=== PATIENT | female | born 1995 | race Caucasian/White ===

== ENCOUNTER 2023-02-28 10:35 | Emergency (ER) | payer OTHER, SELFPAY ==
--- NOTE | ~2023-02-28 | XR_ITS ---
EXAMINATION: XR CHEST CLINICAL INFORMATION: Shortness of breath and cough. COMPARISON: None available. TECHNIQUE: Frontal view of the chest was obtained. FINDINGS: No significant abnormality is noted involving the heart, lungs, mediastinum, bony thorax or soft tissues. XR/XR chest 1V IMPRESSION: Unremarkable examination.
[2023-02-28 10:54] VITALS: BP 128/86; PULSE 84; RESP 18; TEMP 36.6; O2SAT 100; BMI 22.8
--- NOTE | 2023-02-28 11:00 | ECG_ITS ---
Test Reason : CP Blood Pressure : / mmHG Vent. Rate : 079 BPM Atrial Rate : 079 BPM P-R Int : 110 ms QRS Dur : 082 ms QT Int : 370 ms P-R-T Axes : 078 059 057 degrees QTc Int : 424 ms Sinus rhythm with short ID Possible Left atrial enlargement Borderline ECG No previous ECGs available Referred By: Cordelia Stevens Electronically Signed By:SADIA COLON MD
--- NOTE | 2023-02-28 11:01 | ED_ITS ---
HPI - General Adult General Chief complaint: General Medical <CHIDI Glover - Last Filed: 02/28/23 11:03> Stated complaint: SOB/Chest tightness/Fatigue for months <CHIDI Glover - Last Filed: 02/28/23 11:03> Time Seen by Provider: 02/28/23 21:40 <CHIDI Glover - Last Filed: 02/28/23 11:03> Source: patient <Dorita Lo MD - Last Filed: 02/28/23 21:49> Mode of arrival: ambulatory <Dorita Lo MD - Last Filed: 02/28/23 21:49> Limitations: no limitations <Dorita Lo MD - Last Filed: 02/28/23 21:49> History of Present Illness HPI narrative: Patient comes emergency room complaining fatigue, generalized weakness, chest tightness for approximately 2 months. Patient states that she has been seen at urgent care and other hospitals, labs have been normal. <Dorita Lo MD - Last Filed: 02/28/23 21:49> Related Data Allergies/adverse reactions: Allergies Allergy/AdvReac Type Severity Reaction Status Date / Time No Known Allergies Allergy Verified 02/28/23 10:53 <CHIDI Glover - Last Filed: 02/28/23 11:03> Review of Systems Review of Systems: Constitutional : No Weight loss, No Fever, No Chills, No Night Sweats, complaining of chronic fatigue ENT/Mouth : No Hearing loss, No Ear Pain, No Nasal Congestion, No Sinus Pain, No Hoarseness, No sore throat, No Rhinorrhea, No Swallowing Difficulty Eyes: No Eye Pain, No Swelling, No Redness, No Foreign Body, No Discharge, No Vision Changes Cardiovascular : No Chest Pain, intermittent chest tightness, No SOB, No Dyspnea on Exertion, No Orthopnea, No Edema, No Palpitations Respiratory : No Cough, No Sputum, No Wheezing, No Smoke Exposure, No Dyspnea Gastrointestinal : No Nausea, No Vomiting, No Diarrhea, No Constipation, No abdominal Pain, No Hematochezia, No Melena Genitourinary : no irregular bleeding, No Dysuria, No Urinary Frequency, No Hematuria, No Urinary Incontinence, No Urgency, No Flank Pain, No Urinary Flow Changes, No Hesitancy Musculoskeletal : No joint pain, No Myalgias, No Joint Swelling Skin : No Skin Lesions, No rash Neuro : No Weakness, No Numbness, No Paresthesias, No Loss of Consciousness, No Dizziness, No Headache Psych : No Anxiety/Panic, No Depression, No SI/HI/AH/VH, No Social Issues, Heme/Lymph: No Bruising, No Bleeding,No Lymphadenopathy Endocrine : No Polyuria, No Polydipsia, No Temperature Intolerance <Dorita Lo MD - Last Filed: 02/28/23 21:49> Physical Exam ED Vital Signs: Vital Signs - 24 hr 02/28/23 10:54 02/28/23 21:19 Temperature 98 F 97.3 F Pulse Rate 84 69 Respiratory Rate 18 17 Blood Pressure 128/86 127/83 Pulse Oximetry 100 96 Oxygen Delivery Method Room Air BMI result Body Mass Index 22.8 <CHIDI Glover - Last Filed: 02/28/23 11:03> Vital Signs - 24 hr 02/28/23 10:54 02/28/23 21:19 Temperature 98 F 97.3 F Pulse Rate 84 69 Respiratory Rate 18 17 Blood Pressure 128/86 127/83 Pulse Oximetry 100 96 Oxygen Delivery Method Room Air BMI result Body Mass Index 22.8 <Dorita Lo MD - Last Filed: 02/28/23 21:49> Const Other: Appearance: Alert. Oriented X3. No acute distress. Eyes: Pupils equal, round and reactive to light. ENT: Pharynx normal. Neck: Normal inspection. Neck supple. No lymph nodes noted. No crepitus CVS: Normal heart rate and rhythm. Pulses normal. Normal S1 and S2 Respiratory: No respiratory distress. Breath sounds normal. No Wheezing. No rales Abdomen: Soft and nontender. No rigidity. No distention. Skin: Skin warm and dry. Normal skin color. Normal skin turgor. Extremities: No lower extremity edema. No Lacerations. No Rash Neuro: Oriented X 3. No motor deficit. No sensory deficit. Moving all extremities. No slurred speech. CN 2 through 12 grossly intact Psych: calm, cooperative, normal affect <Dorita Lo MD - Last Filed: 02/28/23 21:49> Course Course Course Narrative: RME - 28 yo healthy female presenting with 4-6 weeks of SOB, chest tightness, lightheadedness, fatigue, dry mouth and generalized weakness. She states she went to Urgent Care and [facility] and had normal lab work. VSS in triage. Appears well. Plan: EKG, basic labs, TSH, mono, Upreg <CHIDI Glover - Last Filed: 02/28/23 11:03> Medical Decision Making Medical Decision Making [facility] Narrative: -I discussed with the patient her labs, EKG, x-rays, all normal. -patient instructed to follow-up with her primary care physician <Dorita Lo MD - Last Filed: 02/28/23 21:49> Differential Diagnosis Differential Diagnoses: The differential diagnosis associated with the presentation includes (Chronic fatigue syndrome, depression, anxiety) <Dorita Lo MD - Last Filed: 02/28/23 21:49> Lab Data [facility] Lab Attestation statement: I reviewed the patient's lab results. <Dorita Lo MD - Last Filed: 02/28/23 21:49> Result Diagrams: 02/28/23 11:14 02/28/23 11:14 <CHIDI Glover - Last Filed: 02/28/23 11:03> Labs: Lab Results 02/28/23 02/28/23 02/28/23 Range/Units 11:11 11:11 11:14 WBC 6.8 (4.8-10.8) X10*3/uL RBC 4.48 (4.20-5.50) X10*6/uL Hgb 13.9 (12.0-16.0) g/dl Hct 41.3 (37.0-47.0) % MCV 92.2 (80.0-98.0) fL MCH 31.0 (27.0-33.0) pg MCHC 33.7 (31.0-35.0) g/dl RDW 12.2 (11.0-16.0) % Plt Count 283 (160-400) X10*3/uL MPV 10.6 (9.4-12.3) fL Immature Gran % (Auto) 0.3 (0.0-0.4) % Neut % (Auto) 73.3 H (45-73) % Lymph % (Auto) 19.2 L (20-40) % [place] % (Auto) 6.9 (2-11) % Eos % (Auto) 0.0 (0-4) % Baso % (Auto) 0.3 (0-2) % Lymph # (Auto) 1.3 (1.2-4.9) X10*3/uL [place] # (Auto) 0.5 (0.1-1.2) X10*3/uL Eos # (Auto) 0.0 (0.0-0.4) X10*3/uL Baso # (Auto) 0.0 (0.0-0.2) X10*3/uL Abs Immat Gran (auto) 0.02 (0.00-0.03) X10*3/uL Absolute Neuts (auto) 5.0 (2.0-8.3) x10*3/uL Absolute Nucleated RBC 0.000 (0.0-0.012) X10*3/uL Nucleated RBC % (auto) 0.0 (0.0-0.2) /100WBC Sodium (135-145) mmol/L Potassium (3.3-5.1) mmol/L Chloride (96-108) mmol/L Carbon Dioxide (22-29) mmol/L Anion Gap (12-20) BUN (9-16) mg/dL Creatinine (0.5-1.4) mg/dL Estim Creat Clear Calc Estimated GFR Random Glucose (60-115) mg/dL Calcium (8.4-10.2) mg/dL Magnesium (1.6-2.6) mg/dL Total Bilirubin (0.0-1.0) mg/dL Direct Bilirubin (0.0-0.5) mg/dL AST (5-31) U/L ALT (0-31) U/L Alkaline Phosphatase (39-117) U/L Total Protein (6.5-8.0) g/dL Albumin (3.5-5.0) g/dL TSH (0.32-4.0) uIU/mL Urine Color Yellow Urine Appearance Clear Urine pH 7.0 (5.0-9.0) Ur Specific [place] <= 1.005 (1.005-1.025) Urine Protein Negative (Neg-Trace) mg/dL Urine Glucose (UA) Negative (Negative) mg/dL Urine Ketones Negative (Negative) mg/dL Urine Blood Negative (Negative) Urine Nitrite Negative (Negative) Ur Leukocyte Esterase Negative (Negative) Urine Test NEGATIVE (NEGATIVE) Monoscreen (Negative) 02/28/23 02/28/23 02/28/23 Range/Units 11:14 11:14 11:14 WBC (4.8-10.8) X10*3/uL RBC (4.20-5.50) X10*6/uL Hgb (12.0-16.0) g/dl Hct (37.0-47.0) % MCV (80.0-98.0) fL MCH (27.0-33.0) pg MCHC (31.0-35.0) g/dl RDW (11.0-16.0) % Plt Count (160-400) X10*3/uL MPV (9.4-12.3) fL Immature Gran % (Auto) (0.0-0.4) % Neut % (Auto) (45-73) % Lymph % (Auto) (20-40) % [place] % (Auto) (2-11) % Eos % (Auto) (0-4) % Baso % (Auto) (0-2) % Lymph # (Auto) (1.2-4.9) X10*3/uL [place] # (Auto) (0.1-1.2) X10*3/uL Eos # (Auto) (0.0-0.4) X10*3/uL Baso # (Auto) (0.0-0.2) X10*3/uL Abs Immat Gran (auto) (0.00-0.03) X10*3/uL Absolute Neuts (auto) (2.0-8.3) x10*3/uL Absolute Nucleated RBC (0.0-0.012) X10*3/uL Nucleated RBC % (auto) (0.0-0.2) /100WBC Sodium 140 (135-145) mmol/L Potassium 3.8 (3.3-5.1) mmol/L Chloride 106 (96-108) mmol/L Carbon Dioxide 25 (22-29) mmol/L Anion Gap 13 (12-20) BUN 8 L (9-16) mg/dL Creatinine 0.71 (0.5-1.4) mg/dL Estim Creat Clear Calc 92.4 Estimated GFR > 60 Random Glucose 95 (60-115) mg/dL Calcium 9.8 (8.4-10.2) mg/dL Magnesium 2.2 (1.6-2.6) mg/dL Total Bilirubin 1.2 H (0.0-1.0) mg/dL Direct Bilirubin 0.3 (0.0-0.5) mg/dL AST 13 (5-31) U/L ALT 14 (0-31) U/L Alkaline Phosphatase 51 (39-117) U/L Total Protein 7.4 (6.5-8.0) g/dL Albumin 4.8 (3.5-5.0) g/dL TSH 2.27 (0.32-4.0) uIU/mL Urine Color Urine Appearance Urine pH (5.0-9.0) Ur Specific [place] (1.005-1.025) Urine Protein (Neg-Trace) mg/dL Urine Glucose (UA) (Negative) mg/dL Urine Ketones (Negative) mg/dL Urine Blood (Negative) Urine Nitrite (Negative) Ur Leukocyte Esterase (Negative) Urine Test (NEGATIVE) Monoscreen Negative (Negative) <CHIDI Glover - Last Filed: 02/28/23 11:03> Lab Results 02/28/23 02/28/23 02/28/23 Range/Units 11:11 11:11 11:14 WBC 6.8 (4.8-10.8) X10*3/uL RBC 4.48 (4.20-5.50) X10*6/uL Hgb 13.9 (12.0-16.0) g/dl Hct 41.3 (37.0-47.0) % MCV 92.2 (80.0-98.0) fL MCH 31.0 (27.0-33.0) pg MCHC 33.7 (31.0-35.0) g/dl RDW 12.2 (11.0-16.0) % Plt Count 283 (160-400) X10*3/uL MPV 10.6 (9.4-12.3) fL Immature Gran % (Auto) 0.3 (0.0-0.4) % Neut % (Auto) 73.3 H (45-73) % Lymph % (Auto) 19.2 L (20-40) % [place] % (Auto) 6.9 (2-11) % Eos % (Auto) 0.0 (0-4) % Baso % (Auto) 0.3 (0-2) % Lymph # (Auto) 1.3 (1.2-4.9) X10*3/uL [place] # (Auto) 0.5 (0.1-1.2) X10*3/uL Eos # (Auto) 0.0 (0.0-0.4) X10*3/uL Baso # (Auto) 0.0 (0.0-0.2) X10*3/uL Abs Immat Gran (auto) 0.02 (0.00-0.03) X10*3/uL Absolute Neuts (auto) 5.0 (2.0-8.3) x10*3/uL Absolute Nucleated RBC 0.000 (0.0-0.012) X10*3/uL Nucleated RBC % (auto) 0.0 (0.0-0.2) /100WBC Sodium (135-145) mmol/L Potassium (3.3-5.1) mmol/L Chloride (96-108) mmol/L Carbon Dioxide (22-29) mmol/L Anion Gap (12-20) BUN (9-16) mg/dL Creatinine (0.5-1.4) mg/dL Estim Creat Clear Calc Estimated GFR Random Glucose (60-115) mg/dL Calcium (8.4-10.2) mg/dL Magnesium (1.6-2.6) mg/dL Total Bilirubin (0.0-1.0) mg/dL Direct Bilirubin (0.0-0.5) mg/dL AST (5-31) U/L ALT (0-31) U/L Alkaline Phosphatase (39-117) U/L Total Protein (6.5-8.0) g/dL Albumin (3.5-5.0) g/dL TSH (0.32-4.0) uIU/mL Urine Color Yellow Urine Appearance Clear Urine pH 7.0 (5.0-9.0) Ur Specific [place] <= 1.005 (1.005-1.025) Urine Protein Negative (Neg-Trace) mg/dL Urine Glucose (UA) Negative (Negative) mg/dL Urine Ketones Negative (Negative) mg/dL Urine Blood Negative (Negative) Urine Nitrite Negative (Negative) Ur Leukocyte Esterase Negative (Negative) Urine Test NEGATIVE (NEGATIVE) Monoscreen (Negative) 02/28/23 02/28/23 02/28/23 Range/Units 11:14 11:14 11:14 WBC (4.8-10.8) X10*3/uL RBC (4.20-5.50) X10*6/uL Hgb (12.0-16.0) g/dl Hct (37.0-47.0) % MCV (80.0-98.0) fL MCH (27.0-33.0) pg MCHC (31.0-35.0) g/dl RDW (11.0-16.0) % Plt Count (160-400) X10*3/uL MPV (9.4-12.3) fL Immature Gran % (Auto) (0.0-0.4) % Neut % (Auto) (45-73) % Lymph % (Auto) (20-40) % [place] % (Auto) (2-11) % Eos % (Auto) (0-4) % Baso % (Auto) (0-2) % Lymph # (Auto) (1.2-4.9) X10*3/uL [place] # (Auto) (0.1-1.2) X10*3/uL Eos # (Auto) (0.0-0.4) X10*3/uL Baso # (Auto) (0.0-0.2) X10*3/uL Abs Immat Gran (auto) (0.00-0.03) X10*3/uL Absolute Neuts (auto) (2.0-8.3) x10*3/uL Absolute Nucleated RBC (0.0-0.012) X10*3/uL Nucleated RBC % (auto) (0.0-0.2) /100WBC Sodium 140 (135-145) mmol/L Potassium 3.8 (3.3-5.1) mmol/L Chloride 106 (96-108) mmol/L Carbon Dioxide 25 (22-29) mmol/L Anion Gap 13 (12-20) BUN 8 L (9-16) mg/dL Creatinine 0.71 (0.5-1.4) mg/dL Estim Creat Clear Calc 92.4 Estimated GFR > 60 Random Glucose 95 (60-115) mg/dL Calcium 9.8 (8.4-10.2) mg/dL Magnesium 2.2 (1.6-2.6) mg/dL Total Bilirubin 1.2 H (0.0-1.0) mg/dL Direct Bilirubin 0.3 (0.0-0.5) mg/dL AST 13 (5-31) U/L ALT 14 (0-31) U/L Alkaline Phosphatase 51 (39-117) U/L Total Protein 7.4 (6.5-8.0) g/dL Albumin 4.8 (3.5-5.0) g/dL TSH 2.27 (0.32-4.0) uIU/mL Urine Color Urine Appearance Urine pH (5.0-9.0) Ur Specific [place] (1.005-1.025) Urine Protein (Neg-Trace) mg/dL Urine Glucose (UA) (Negative) mg/dL Urine Ketones (Negative) mg/dL Urine Blood (Negative) Urine Nitrite (Negative) Ur Leukocyte Esterase (Negative) Urine Test (NEGATIVE) Monoscreen Negative (Negative) <Dorita Lo MD - Last Filed: 02/28/23 21:49> Independent Interpretation I performed an independent interpretation of an: Plain X-Ray (My interpretation of x-rays, no acute findings) <Dorita Lo MD - Last Filed: 02/28/23 21:49> Radiology Impression Discussion of test interpretation with radiology: I have reviewed the radiologist's reading. <Dorita Lo MD - Last Filed: 02/28/23 21:49> Radiologist Impression: FINDINGS: No significant abnormality is noted involving the heart, lungs, mediastinum, bony thorax or soft tissues. XR/XR chest 1V IMPRESSION: Unremarkable examination. ? <Dorita Lo MD - Last Filed: 02/28/23 21:49> Discharge Plan Discharge Clinical Impression: Chronic fatigue <CHIDI Glover - Last Filed: 02/28/23 11:03> Patient Disposition: Home, Self-Care <CHIDI Glover - Last Filed: 02/28/23 11:03> Instructions: Fatigue (ED) <CHIDI Glover - Last Filed: 02/28/23 11:03> Additional Instructions: Please follow-up with your primary care physician tomorrow. If you have any worsening or new symptoms, please return to the emergency room or call 911 <CHIDI Glover - Last Filed: 02/28/23 11:03>
[2023-02-28 11:23] LABS: MANUAL DIFF FLAG NO
[2023-02-28 11:24] LABS: Basophils Percent Auto 0.3 % (0-2); Hematocrit 41.3 % (37.0-47.0); Hemoglobin 13.9 g/dl (12.0-16.0); Imm Gran Abs Auto 0.02 X10*3/uL (0.00-0.03); Imm Gran Pct Auto 0.3 % (0.0-0.4); Lymphocytes Absolute Auto 1.3 X10*3/uL (1.2-4.9); Lymphocytes Percent Auto 19.2 % (20-40); Mean Corpuscular HGB Conc 33.7 g/dl (31.0-35.0); Mean Corpuscular Volume 92.2 fL (80.0-98.0); Mean Platelet Volume 10.6 fL (9.4-12.3); Monocytes Absolute Auto 0.5 X10*3/uL (0.1-1.2); Monocytes Percent Auto 6.9 % (2-11); Neutrophils Percent Auto 73.3 % (45-73); Platelet Count 283 X10*3/uL (160-400); Red Blood Count 4.48 X10*6/uL (4.20-5.50); Red Cell Distribution Width 12.2 % (11.0-16.0); White Blood Count 6.8 X10*3/uL (4.8-10.8)
[2023-02-28 11:25] LABS: Appearance Urine Clear; Color Urine Yellow; Glucose Urine UA Negative (Negative); Leukocyte Esterase Urine Negative (Negative); Nitrite Urine Negative (Negative); Specific Gravity - Urine <= 1.005 (1.005-1.025); Urine Blood Negative (Negative); Urine Ketones Negative (Negative); Urine Protein Negative (Neg-Trace)
[2023-02-28 11:28] LABS: UPreg QC Valid YES; Urine Pregnancy NEGATIVE (NEGATIVE)
[2023-02-28 11:40] LABS: Alanine Aminotransferase 14 U/L (0-31); Albumin Level 4.8 g/dL (3.5-5.0); Alkaline Phosphatase 51 U/L (39-117); Anion Gap 13 (12-20); Aspartate Amino Transferase 13 U/L (5-31); Bilirubin Direct 0.3 mg/dL (0.0-0.5); Bilirubin Total 1.2 mg/dL (0.0-1.0); Blood Urea Nitrogen 8 mg/dL (9-16); Calcium 9.8 mg/dL (8.4-10.2); Carbon Dioxide 25 mmol/L (22-29); Chloride 106 mmol/L (96-108); Creatinine Clr Calc Pharmacy 92.4; Estimated Glomerular Filt Rate > 60; Glucose Random 95 mg/dL (60-115); Magnesium 2.2 mg/dL (1.6-2.6); Monotest Negative (Negative); Potassium 3.8 mmol/L (3.3-5.1); Sodium 140 mmol/L (135-145); Total Protein 7.4 g/dL (6.5-8.0)
[2023-02-28 12:01] LABS: TSH reflex Free T4 2.27 uIU/mL (0.32-4.0)
[2023-02-28 21:19] VITALS: BP 127/83; PULSE 69; RESP 17; TEMP 36.3; O2SAT 96
--- OUTSIDE RECORDS SUMMARY | 2023-02-28 21:53 | XMS_ITS | Continuity of Care Document ---
Author Name Unknown Organization [facility] Address [address] [place] [address]- Care Team Providers Care Precision Assembler Name Role Phone Not on Staff, PCP Primary Care Physician Unavail able Encounter [facility] Date(s): 02/07/23 - 02/07/[address] [address]- Discharge Disposition: A-D/C Home Attending Physician: Jose Santiago MD Admitting Physician: Jose Santiago MD Referring Physician: Not on Staff, Referring MD Allergies, Adverse Reactions, Alerts No Known Allergies Medications meclizine 25 mg oral tablet 1 tablet = 25 mg, By Mouth, 3 times a day, PRN for dizziness, for 10 days, # 30 tablet, 0 Refills, Acute 02/17/23 22:11:00 EDT, 02/07/23 22:11:00 EDT, Tablet, [id number], Partial fill upon patient request if the prescription is for a... Start Date: 02/07/23 Stop Date: 02/17/23 Status: Ordered ondansetron 4 mg oral tablet, disintegrating 1 tablet = 4 mg, By Mouth, Every 8 hours, PRN Nausea & Vomiting, for 7 days, # 20 tablet, 0 Refills, Acute 02/14/23 22:11:00 EDT, 02/07/23 22:11:00 EDT, Tablet, [facility] #[id number], Partial fill upon patient request if the prescription is for... Start Date: 02/07/23 Stop Date: 02/14/23 Status: Ordered Vital Signs Most recent to oldest [Reference Range]: 1 2 Height 158 cm (02/07/23 5:08 PM) Weight 57.7 kg (02/07/23 5:08 PM) Oxygen Saturation [94-100 %] 100 % (02/07/23 10:38 PM) 99 % (02/07/23 5:08 PM) Pulse Rate [55-90 bpm] 67 bpm (02/07/23 10:38 PM) 75 bpm (02/07/23 5:08 PM) Blood Pressure [90-138/55-84 mm Hg] 114/ 70mm Hg (02/07/23 10:38 PM) 116/82mm Hg (02/07/23 5:08 PM) Respiratory Rate [16-30 br/min] 16 br/mi n (02/07/23 10:38 PM) 16 br/min (02/07/23 5:08 PM) Temperature [96.8-100.4 DegF] 97.5 DegF (02/07/23:38 PM) 97.6 DegF (02/07/23:08 PM) Mode of Delivery (Oxygen) Room air (02/07/23 10:38 PM) Room air (02/07/23 5:08 PM) Blood pressure sites Arm, left (02/07/23 10:38 PM) Arm, left (02/07/23:08 PM) Temperature Route Oral (02/07/23 10:38 PM) Temporal (02/07/23 5:08 PM) Dry Weight 57.7 kg (02/07/23 5:08 PM) Dry Weight Obtained Via Standing scale (02/07/23 5:08 PM) Social History Social History Type Response Smoking Status Never (less than 100 in lifetime) entered on: 02/07/23 Sex Note * Jack ROBBINS, Jose Joyner: PERFORM Event Display: Patient Education Leaflets Authored Date: [id number] Vertigo (Unknown Cause) ?? [id number] Vertigo (Unknown Cause) Vertigo is a false feeling of motion. You aren't moving, but it feels as if you are. This feeling can be caused by problems in the inner ear. In addition to helping with hearing, the inner ear is part of the balance center of your body. When something affects the balance center, you can have vertigo. Often it feels as if you or the room are spinning. A vertigo attack may cause sudden nausea, vomiting, and heavy sweating. Severe vertigo causes a loss of balance and can make you fall. During vertigo, small head movements and changes in body position will often make the symptoms worse. You may also have ringing in the ears (tinnitus). An episode of vertigo may last seconds, minutes, or hours. Once you are over the first episode, it may never come back. But symptoms may return off and on. Often your provider will have you do certain head and body movements in the office to treat your vertigo. The cause of your vertigo is not yet known.??Possible causes of vertigo include: ??? Inner ear inflammation ??? Disease of the nerves to the inner ear ??? Movement of calcium particles in the inner ear ??? Poor blood flow to the balance centers of the brain ??? Migraine headaches??? In older adults, the use of more than one medicine along with some health conditions Home care ??? If symptoms are severe, rest quietly in bed. Change positions very slowly. There is often one position that will feel best. This may be lying on one side or lying on your back with yourhead slightly raised on pillows. Until you have no symptoms, you are at a higher risk of falling. Let someone help you when you get up. Get rid of home hazards such as loose electrical cords, clutter, toys on the floor, and throw rugs. Don???t walk in unfamiliar areas that are not lighted. Use night-lights in bathrooms and sabra. ??? Don't drive??a car??or work with dangerous machinery until symptoms have been gone for at least 1 week. ??? Take medicine as prescribed to ease your symptoms. Unless another medicine was prescribed for symptoms of nausea, vomiting, and dizziness, you may use [id number] motion sickness pills.??If you have any questions about an [id number] medicineor its side effects, talk with your healthcare provider or pharmacist before taking it. Let your pharmacist know all of the other medicines you are taking and if you have any allergies to medicines. ?? Follow-up care Follow up with your healthcare provider as directed. If you are referred to a specialist or for testing, make the appointment right away. ?? When to get medical advice Call your healthcare provider if you have any of the following: ??? Fever of 100.4??F (38??C) or higher, or as directed by your healthcare provider ??? Vertigo gets worse or is not controlled by??prescribed??medicine? Repeated vomiting that doesn't stop after taking prescribed??medicine? Severe headache ??? Confusion ??? Trouble with vision ?? Call 911 Call 911 if any of these occur: ??? Feeling faint (loss of consciousness) ??? Seizure ??? Weakness of an arm, leg, or one side of the face ??? Trouble with speech ?? Last Reviewed Date: 2022 ?? 5625-1273 [employer]. All rights reserved. This information is not intended as a substitute for professional medical care. Always follow your healthcare professional's instructions. ?? Patient Care team information Care Team Personnel Name: Not on Staff, PCP Position: [facility] Physician (General Medicine) Member Role: PCP Name: Jack ROBBINS, Jose Joyner Position: [facility] ED Medicine MD Member Role: Admitting Physician Address: Address: [address] [place] [address] [place] [address]- Name: Apryl Mariano RN Position: [facility] ED RN W/OE and Tasks Member Role: Patient Care Provider Care Team Related Persons Name: WILLIAMS GARRISON Address: home [address] [place] [address] Name: SEGUNDO RUELAS Address: home [address] [place] [address]
--- NOTE | 2023-02-28 22:35 | PC.NURSE ---
pt ambulatory at discharge. pt calm and cooperative. pt partner at bedside. pt provided with discharge packet. pt verbalized understanding of discharge plan
== END 2023-02-28 22:36 | disposition home or self-care (01) ==
PROVIDERS: Physician Assistant; Emergency Provider Emergency Medicine; PCP Internal Medicine
DX: R53.83 Other fatigue (principal); R07.89 Other chest pain; R06.02 Shortness of breath; Z79.899 Other long term (current) drug therapy
CPT/HCPCS: 36415; 71045; 80048; 80076; 81003; 81025; 83735; 84443; 85025; 86308; 93005; 99283; 99284

== ENCOUNTER 2023-05-10 09:47 | Outpatient (AMB) | payer OTHER, SELFPAY ==
[2023-05-10 09:59] VITALS: BP 110/70; PULSE 97; O2SAT 98; BMI 22.1
--- NOTE | 2023-05-10 09:59 | MHC.PC.OV ---
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 Patient was in the emergency room for chronic fatigue review of the blood work was normal. feeling dizzy pass out , nausea, since january anxious , depression ? cause consfused, warm bilateral arm numbness, pressure ear, , occ waking up sob, , state chest pain- states [facility] MRI brain which is negative watery stools, , no dysuria LMP thid time regular REPLACED BY [facility] Medical History (Updated 05/10/23 @ 10:58 by Erasto Cote MD) Tourette syndrome Family History (Updated 05/10/23 @ 10:34 by Erasto Cote MD) Maternal Uncle Bone cancer Lung cancer Other Diabetes FH: mental illness Hypertension Substance abuse Social History (Updated 05/10/23 @ 10:36 by Erasto Cote MD) Housing: House Alcohol intake: current Alcohol intake frequency: holidays/special occasions only Patient Tobacco Use Status: Never used Tobacco e-Cigarette/Vaping Use: Never Used Second Hand Smoke Exposure: No service: No Current occupational status: employed Current occupational exposures/hazards: Yes Cognitive needs: No Hearing needs: No Vision needs: No Questionnaire PHQ-9 Over the last 2 weeks, how often have you been bothered by any of the following problems? 1. Little interest or pleasure in doing things: nearly every day 2. Feeling down, depressed, or hopeless: nearly every day 3. Trouble falling or staying asleep, or sleeping too much: several days 4. Feeling tired or having little energy: several days 5. Poor appetite or overeating: not at all 6. Feeling bad about yourself - or that you are a failure or have let yourself or your family down: several days 7. Trouble concentrating on things, such as reading the newspaper or watching television: nearly every day 8. Moving or speaking so slowly that other people could have noticed. Or the opposite - being so fidgety or restless that you have been moving around a lot more than usual: not at all 9. Thoughts that you would be better off or of hurting yourself in some way: not at all Total score: 12 Source: Developed by Drs. Miguel Melara, Annika Ibanez, Sam Perez and colleagues, with an educational harrison from [employer]. Thrive Questionnaire Date Thrive assessed: 05/10/23 I am a: Patient What is your living situation today?: I have a steady place to live Within the past 12 months, did the food you bought not last and you didn't have the money to get more?: Never true Within the past 12 months, did you worry whether your food would run out before you got money to buy more?: Never true Do you have trouble paying for medicines?: No Do you have trouble getting transportation to medical appointments?: No Do you have trouble paying your heating and electricity bill?: No Do you have trouble taking care of your child, family member or friend?: No Do you have trouble with day-to-day activities such as bathing, preparing meals, shopping, managing finances, etc.?: No Are you currently unemployed and looking for a job?: No Are you interested in more education?: No Please select the resources that you would like help with: None Currently or been in a relationship where the following occur: no concerns reported AUDIT C Alcohol Use Questionnaire (AUDIT-C) 1. How often do you have a drink containing alcohol?: Monthly or less Total Score: 1 KEN-7 AMB Questionnaire KEN-7 Date KEN - 7 assessed: 05/10/23 Feeling nervous, anxious, or on edge: 3 = Nearly every day Not being able to stop or control worryin = Nearly every day Worrying too much about different things: 3 = Nearly every day Trouble relaxin = Nearly every day Being so restless that it is hard to sit still: 1 = Several days Becoming easily annoyed or irritable: 2 = More than half the days Feeling afraid as if something awful might happen: 3 = Nearly every day Total KEN-7 score (0-4 normal; 5-9 mild; 10-14 moderate; 15-21 severe): 18 Source: Developed by Drs. Miguel Melara, Annika Ibanez, Sam Perez and colleagues, with an educational harrison from [employer]. Review of Systems Const Denies poor appetite and Denies weakness Eyes Denies no additional complaints ENT Reports Normal hearing present, Denies dizziness, Denies nasal congestion, Denies tinnitus and Denies sore throat Card Denies chest pain, Denies syncope, Denies rapid heart rate and Denies dyspnea Resp Denies cough and Denies dyspnea GI Denies change in stool character, Reports constipation, Denies diarrhea, Denies nausea and Denies vomiting Denies urinary frequency, Denies difficulty voiding and Denies dysuria Neuro Reports Normal hearing present, Denies confusion, Denies dizziness, Denies syncope and Denies weakness Psych Denies confusion Physical exam (Primary Care) Vital Signs: Last Vital Signs Pulse 97 05/10/23 09:59 BP 110/70 05/10/23 09:59 Pulse Ox 98 05/10/23 09:59 Oxygen Delivery Method Room Air 05/10/23 09:59 Care Plan Goal for BP management: 1 cm mass 6 oclock right breast BMI result Body Mass Index 22.1 Tobacco/Smoking Status: Tobacco use Status Tobacco use date assessed 05/10/23 05/10/23 10:06 Patient Tobacco Use Status Never used Tobacco 05/10/23 10:06 e-Cigarette/Vaping Use Never Used 05/10/23 10:06 PHQ-9: PHQ-9 Score PHQ-9: Total score 12 05/10/23 10:06 Thrive Assessment: Date of Thrive Assessment Date Thrive assessed 05/10/23 05/10/23 10:06 Currently or been in a relationship where the following occur: no concerns reported Const General: No confusion Orientation/consciousness: No confusion HENMT Head: Yes normocephalic Ears: external ears normal and TM's normal bilaterally Face and sinus: Yes normal facial exam Mouth: moist mucous membranes Throat: Yes tonsils normal Eyes Conjunctivae: conjunctivae normal Pupils: Equal, round and reactive pupils present and Pupil accommodation reflex normal Direct Ophthalmoscopy: normal light reflex Neck Neck: No lymphadenopathy Thyroid: Thyroid normal Chest Chest palpation & inspection: normal inspection of the chest Resp Effort & Inspection: normal respiratory effort and no audible wheezes Auscultation: clear to auscultation bilaterally, no crackles, no wheezes and lung sounds not diminished Cardio Rate: regular rate Rhythm: regular rhythm Peripheral pulses: radial pulses present and dorsalis pedis present GI Palpation (GI): no masses Auscultation: normal bowel sounds and normoactive bowel sounds Rectal Exam - Female: deferred Skin General skin exam: no rashes or lesions noted Rashes: no rashes Neuro General: No confusion Cranial nerves: Yes Equal, round and reactive pupils present and Yes Normal hearing present Cognition (Neuro): normal cognition Gait exam (Neuro): Normal gait present Motor exam (neuro): 5/5 motor strength present throughout Deep tendon reflexes (DTR's): Right brachioradialis reflex intensity grade: 2+, Left brachioradialis reflex intensity grade: 2+, Right patellar reflex intensity grade: 2+ and Left patellar reflex intensity grade: 2+ Extrem General: No edema Assessment and Plan Assessment & Plan (1) Annual physical exam: Code(s): Z00.00 - Encounter for general adult medical examination without abnormal findings (2) Cervical cancer screening: Code(s): Z12.4 - Encounter for screening for malignant neoplasm of cervix (3) Breast mass, right: Comment: 1 cm mass 6 oclock right breast Code(s): N63.10 - Unspecified lump in the right breast, unspecified quadrant (4) KEN (generalized anxiety disorder): Code(s): F41.1 - Generalized anxiety disorder (5) SOB (shortness of breath): Code(s): R06.02 - Shortness of breath Orders: Orders MM tomosynthesis diagnostic BI Today N63.10 - Unspecified lump in the right breast, unspecified quadrant US breast RT limited Today N63.10 - Unspecified lump in the right breast, unspecified quadrant PFT pulmonary function test Today R06.02 - Shortness of breath Referrals MINIATURE SET BUILDER Referral Z12.4 - Encounter for screening for malignant neoplasm of cervix Psychiatry Referral F41.1 - Generalized anxiety disorder Medications: New sertraline 25 mg PO DAILY 30 tabs 2RF F41.1 - Generalized anxiety disorder Coding Level of Care Code New Pt Prev Care 18-39yr([id number] Diagnoses Annual physical exam Z00.00 Cervical cancer screening Z12.4 Breast mass, right N63.10 KEN (generalized anxiety disorder) F41.1 SOB (shortness of breath) R06.02
== END 2023-05-10 11:17 | disposition home or self-care (01) ==
PROVIDERS: PCP Internal Medicine; Visit Provider Internal Medicine
DX: Z00.00 Encounter for general adult medical examination without abnormal findings (principal); N63.14 Unspecified lump in the right breast, lower inner quadrant; F41.1 Generalized anxiety disorder; R06.02 Shortness of breath
CPT/HCPCS: 99385

== ENCOUNTER 2023-05-17 07:50 | Outpatient (REF) | payer OTHER, SELFPAY ==
--- NOTE | 2023-05-17 08:49 | PFT_ITS ---
FLOWS: 1. FEV1 91% of predicted at 3.76 L. 2. FVC 118% of predicted at 4.19 L. 3. FEV1 to FVC ratio of 0.66. 4. No bronchodilator response. LUNG VOLUMES: 1. Total lung capacity 121% of predicted at 5.71 L. 2. Residual volume 122% of predicted at 1.55 L. 3. Slow vital capacity 121% of predicted at 4.23 L. 4. Expiratory reserve volume 77% of predicted at 1.01 L. 5. Diffusion capacity is normal. IMPRESSION: Mild obstructive ventilatory defect. There is no bronchodilator response. Increased total lung capacity suggests hyperinflation. Increased residual volume suggests air trapping. Peterson Copeland MD AP/MODL / [id number]
== END 2023-05-17 07:51 | disposition home or self-care (01) ==
LOC: HO.RESP 07:50
PROVIDERS: Visit Provider Internal Medicine
DX: R06.02 Shortness of breath (principal)
CPT/HCPCS: 94010; 94727; 94729

== ENCOUNTER → 2023-05-17 08:49 | Outpatient (BNV) | payer OTHER, SELFPAY | PROVIDERS: Visit Provider Internal Medicine Pulmonary Disease | DX: R06.09 Other forms of dyspnea (principal) | CPT/HCPCS: 94060; 94727; 94729 ==

== ENCOUNTER 2023-07-15 10:24 | Outpatient (REF) | payer OTHER, SELFPAY ==
[2023-07-15 19:24] LABS: CT PCR NOT DETECTED (Not Detect.); NG PCR NOT DETECTED (Not Detect.)
[2023-07-16 12:49] LABS: BV Int Neg Control Negative (Negative); BV Int Pos Control Positive (Positive)
== END 2023-07-15 10:25 | disposition home or self-care (01) ==
LOC: HO.LNP 10:24
PROVIDERS: PCP Internal Medicine; Visit Provider Advanced Practice Midwife
DX: Z01.419 Encounter for gynecological examination (general) (routine) without abnormal findings (principal); Z20.2 Contact with and (suspected) exposure to infections with a predominantly sexual mode of transmission
CPT/HCPCS: 0353U; 87480; 87510; 87660; 88142

== ENCOUNTER 2023-07-15 10:24 | Outpatient (AMB) | payer OTHER, SELFPAY ==
[2023-07-15 10:35] VITALS: BP 112/70; BMI 20.8
--- NOTE | 2023-07-15 10:35 | MHC.OFFVIS ---
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 Retread Supervisor Required: No Information Interpreted: non-clinical & clinical Provider Relations Rep: Provider Relations Rep Present (Aidyn) Allergies No Known Allergies Allergy (Verified 07/15/23 10:38) Medication List - Last Reconciled 07/15/23 by Christiane Matthews CNM cholecalciferol (vitamin D3) 25 mcg PO DAILY fluoxetine (Prozac) 20 mg PO DAILY omega 3-apq-stq-fish oil 60-90-500 mg (Fish Oil) 1 cap PO DAILY Is last menstrual period known: Yes Last menstrual period: 06/27/23 Post menopausal: No HPI 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 She got in March or April and she is sexually active she has been tracking her cycles and she has very regular periods and she believes she can tell when she is ovulating and she and her avoid intimacy at those times. This is been working for her and she does not think she wants to start any other method at this time. She believes she is healthy though she did have some health concerns and symptoms in the last couple of years that she is discovering may have had something to do with anxiety but she is exploring what is behind that as well with both therapy which she has an appointment for today and also revisiting exercise and she has resumed swimming and other activities and all of those things are helping. She just recently acquired primary care here but then she did just which to a primary care provider woman in [facility]. 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 She is possibly open to in the future. Does have a lump in her right breast that she has had for very long time and she thinks both Dr. Mack and also her new primary care provider both ordered mammogram is and follow-up for it but she has not scheduled them yet and she will call her new primary in decide which road to go check it out. Since it appears that she has 2 sets of orders already ordered to evaluate this I will not add a 3rd> She received pediatric care at [facility] with Dr. Munroe and she is not sure if she got the full series or only 2 of the Gardasil vaccine series but she is willing to go check her records. [facility] Medical History Anxiety Tourette syndrome Family History Maternal Uncle Bone cancer Lung cancer Other Diabetes FH: mental illness Hypertension Substance abuse Social History Housing: House Alcohol intake: current Alcohol intake frequency: holidays/special occasions only Patient Tobacco Use Status: Never used Tobacco e-Cigarette/Vaping Use: Never Used Second Hand Smoke Exposure: No service: No Current occupational status: employed Current occupational exposures/hazards: Yes Cognitive needs: No Hearing needs: No Vision needs: No Female Reproductive History Menstrual Age of Menarche: 11 Duration of menses: 3-5 days Date of last menstrual period: 06/27/23 control method: none Total pregnancies: 0 Physical Exam Vital Signs: Last Vital Signs BP 112/70 07/15/23 10:35 BMI result Body Mass Index 20.8 Const General: healthy appearing, comfortable, no acute distress, well developed and alert Nutritional Appearance: average body habitus Orientation/consciousness: patient oriented x3 Limitations: no limitations HEENT Head: Yes normocephalic Neck Neck: Yes normal visual inspection Thyroid: Thyroid normal Chest Other: Small 1 and half by 1 and half rubbery mass at 06:00 o'clock midway between nipple and lower aspect of breast, right breast near chest wall. Patient states she has had it for a long time and Dr. Cote had ordered a mammogram and ultrasound for it and she also believes her new primary ordered follow-up for it as well and she will talk to her new primary and decide whose order to honor Chest palpation & inspection: normal inspection of the chest Breast/axilla inspection: normal inspection of the breasts and normal inspection of the axillae Breast/axilla palpation: normal palpation of the breasts and normal palpation of the axillae Resp Effort & Inspection: normal respiratory effort GI Inspection: Yes normal to inspection, No Abdominal wall edema and No distended Palpation (GI): Soft to palpation and nontender General: Yes bladder normal to palpation External Female Exam: normal external appearance and normal appearance of the urethra Speculum Exam - Vagina: normal appearance of the vagina, normal palpation and normal vaginal discharge Speculum Exam - Cervix: normal appearance of the cervix, normal palpation and nontender Bimanual exam- vagina & uterus: normal bimanual exam, normal palpation, uterine size normal, bladder normal to palpation, consistency normal, normal palpation, uterine mobility normal, uterine shape normal, No Cervical tenderness present, non-tender and no cervical motion tenderness Bimanual Exam- Adnexa, other: normal adnexae, no masses, normal and No adnexal tenderness Neuro General: patient oriented x3 Assessment & Plan Assessment & Plan (1) Breast mass, right: Comment: 1 cm mass 6 oclock right breast; patient also started with new primary and thinks that she ordered mammogram and ultrasound as well patient to get screening with 1 of the above orders... Code(s): N63.10 - Unspecified lump in the right breast, unspecified quadrant (2) Cervical cancer screening: Comment: 1st Pap done 07/15/2023. Patient will verify if she had the full Gardasil vaccine at [facility]. Code(s): Z12.4 - Encounter for screening for malignant neoplasm of cervix (3) Screen for sexually transmitted diseases: Code(s): Z11.3 - Encounter for screening for infections with a predominantly sexual mode of transmission (4) control counseling: Comment: Currently content with fertility awareness... 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 She got in March or April and she is sexually active she has been tracking her cycles and she has very regular periods and she believes she can tell when she is ovulating and she and her avoid intimacy at those times. This is been working for her and she does not think she wants to start any other method at this time. She believes she is healthy though she did have some health concerns and symptoms in the last couple of years that she is discovering may have had something to do with anxiety but she is exploring what is behind that as well with both therapy which she has an appointment for today and also revisiting exercise and she has resumed swimming and other activities and all of those things are helping. She just recently acquired primary care here but then she did just which to a primary care provider woman in [facility]. 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 She is possibly open to in the future. Does have a lump in her right breast that she has had for very long time and she thinks both Dr. Cote, and also her new primary care provider both ordered mammogram is and follow-up for it but she has not scheduled them yet and she will call her new primary in decide which road to go check it out. Since it appears that she has 2 sets of orders already ordered to evaluate this I will not add a 3rd She received pediatric care at [facility] with Dr. Munroe and she is not sure if she got the full series or only 2 of the Gardasil vaccine series but she is willing to go check her records. -----Discussed in this visit the following: healthy balanced diet, regular and consistent exercise, getting recommended health screens, doing the best she can for her particular health concerns, kegel exercises, pap smear screening and followup recommendations, mammography screening and SBE, normal changes in cycles in her life stage--- . Teaching done about Pap smears and HPV screening as well as other STI screening and reviewed options briefly for control she is content with following her method of fertility awareness and she was able to demonstrate good assessment skills in her telling of her symptoms so if it is working for her that is fine. I also reviewed options for care and care should she become given her where she lives and works. For first-time I do recommend that she receive care from says a comprehensive practice that can offer care throughout the and delivery though it would be her choice of course. She is low risk however there are many questions that arise in a and she would probably be best served starting from the very start with a practice that could help her with the delivery as well. She watched the of her niece 4 years ago possibly here or possibly at [facility] and says it was life changing. RTC 1 year for annual. But she would not be due for another Pap smear for 3 years if this is normal. Reviewed the circumstances that would recommend to more frequent STI testing. Orders: Orders Bacterial Vaginosis Panel Today Z01.419 - Encounter for gynecological examination (general) (routine) without abnormal findings CT NG by PCR Today Z01.419 - Encounter for gynecological examination (general) (routine) without abnormal findings Pap Smear Today Z01.419 - Encounter for gynecological examination (general) (routine) without abnormal findings Coding Level of Care Code New Pt Prev Care 18-39yr([id number] Diagnoses Breast mass, right N63.10 Cervical cancer screening Z12.4 Screen for sexually transmitted diseases Z11.3 control counseling Z30.09
== END 2023-07-15 11:31 | disposition home or self-care (01) ==
PROVIDERS: PCP Internal Medicine; Visit Provider Advanced Practice Midwife
DX: Z01.419 Encounter for gynecological examination (general) (routine) without abnormal findings (principal); N63.10 Unspecified lump in the right breast, unspecified quadrant
CPT/HCPCS: 99385

== ENCOUNTER 2024-07-17 11:06 | Outpatient (AMB) | payer OTHER, SELFPAY ==
[2024-07-17 11:17] VITALS: BP 110/64; BMI 22.7
--- NOTE | 2024-07-17 11:17 | A.OFFVIS_ITS ---
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 She uses fertility awareness as her method of control and always has and feels very comfortable with it and it works for her. Her last menstrual period was June 28. She has no worries whatsoever about STDs and declines testing as the testing was done last year and she has no concerns. She works in [employer] at [employer] in [place]. 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 She has no concerns about anything she had a small lump last year that was appreciated and follow-up mammograms and ultrasound were negative and she was told that unless it gets bigger does need to be dealt with at all. [facility]LY [facility] Medical History Anxiety Tourette syndrome Family History Maternal Uncle Bone cancer Lung cancer Other Diabetes FH: mental illness Hypertension Substance abuse Social History Housing: House Alcohol intake: current Alcohol intake frequency: holidays/special occasions only Patient Tobacco Use Status: Never used Tobacco e-Cigarette/Vaping Use: Never Used Second Hand Smoke Exposure: No service: No Current occupational status: employed Current occupational exposures/hazards: Yes Cognitive needs: No Hearing needs: No Vision needs: No Female Reproductive History Menstrual Age of Menarche: 11 Duration of menses: 3-5 days Date of last menstrual period: 06/28/24 control method: none Total pregnancies: 0 Date of last pap smear: 07/18/23 (negative) History of abnormal pap smear: No Physical Exam Vital Signs: Last Vital Signs BP 110/64 07/17/24 11:17 BMI result Body Mass Index 22.7 Const General: healthy appearing, comfortable, no acute distress, well developed and alert Nutritional Appearance: average body habitus Orientation/consciousness: patient oriented x3 Limitations: no limitations HEENT Head: Yes normocephalic Neck Neck: Yes normal visual inspection Chest Other: No mass appreciated by this examiner today. Chest palpation & inspection: normal inspection of the chest Breast/axilla inspection: normal inspection of the breasts and normal inspection of the axillae Breast/axilla palpation: normal palpation of the breasts and normal palpation of the axillae Resp Effort & Inspection: normal respiratory effort GI Inspection: Yes normal to inspection, No Abdominal wall edema and No distended Palpation (GI): Soft to palpation and nontender Other: Completely normal external exam vagina pink and moist with clear white discharge consistent with luteal phase nulliparous cervix pink smooth very healthy uterus midposition to anteverted mobile nontender adnexa nontender not enlarged good tone with Kegel instructed on trying to isolate them to just a pelvic floor and not involved buttock muscles.. General: Yes bladder normal to palpation External Female Exam: normal external appearance and normal appearance of the urethra Speculum Exam - Vagina: normal appearance of the vagina, normal palpation and normal vaginal discharge Speculum Exam - Cervix: normal appearance of the cervix, normal palpation and nontender Bimanual exam- vagina & uterus: normal bimanual exam, normal palpation, uterine size normal, bladder normal to palpation, consistency normal, normal palpation, uterine mobility normal, uterine shape normal, No Cervical tenderness present, non-tender and no cervical motion tenderness Bimanual Exam- Adnexa, other: normal adnexae, no masses, normal and No adnexal tenderness Neuro General: patient oriented x3 Results Reviewed Results Reviewed: Name: Renetta Tompkins Age/Sex: 28/F Attending: Christiane Matthews CNM : 1995 Submitted by: Christiane Matthews CNM Copies to: Erasto Cote MD MR #: [id number] Status: DEP REF Collected: 07/15/23 Location: [facility] Received: 07/18/23 Interpretation Satisfactory for evaluation. Negative for intraepithelial lesion or malignancy. Clinical Information LMP: 06/27/23 Previous PAP test: First pap Material Received ThinPrep-Cervical Copies To Christiane Matthews CNM [address] [place] [address] Dr. Krueger [address] [id number] Erasto Cote MD [address] [place] [address] Dr. Krue[address] [address] Electronically Signed By: Cris Persaud 07/26/23 4737 The Pap Test is a screening procedure with the inherent possibility of both false negative and false positive results. Results should be interpreted in the context of historic and current clinical findings. Reliability of the Pap Test is enhanced by performing the test on a regular repetitive basis. Patient: Renetta Tompkins Age/Sex: 28/F MR#: [id number] Page 1 of 1 Assessment & Plan Assessment & Plan (1) control counseling: Comment: Currently content with fertility awareness... Code(s): Z30.09 - Encounter for other general counseling and advice on contraception Category: Medical (2) Cervical cancer screening: Comment: 1st Pap done 07/15/2023. Patient will verify if she had the full Gardasil vaccine at [facility].; 07/15/2023 Pap is negative. Code(s): Z12.4 - Encounter for screening for malignant neoplasm of cervix Category: Medical (3) Well woman exam with routine gynecological exam: Code(s): Z01.419 - Encounter for gynecological examination (general) (routine) without abnormal findings Category: Medical Plan -----Discussed in this visit the following: healthy balanced diet, regular and consistent exercise, getting recommended health screens, doing the best she can for her particular health concerns, kegel exercises, pap smear screening and followup recommendations, mammography screening and SBE, normal changes in cycles in her life stage--- Reviewed all the testing done last year reviewed the common finding of Gardnerella and Rosa which are part of normal shen and did not need to be treated unless they are symptomatic she declined all testing this time as she felt she had no need, . See HPI and exam sections for some more details. She is very happy with fertility awareness and it works for her. She knows she does not need to follow-up on her breast tissue unless something else changes. 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 Coding Level of Care Code Est Pt Prev Care 18-39y(78294) Diagnoses control counseling Z30. Cervical cancer screening Z12.4 Well woman exam with routine gynecological exam Z01.419
== END 2024-07-17 11:46 | disposition home or self-care (01) ==
LOC: HO.HWSM 11:06
PROVIDERS: PCP Internal Medicine; Visit Provider Advanced Practice Midwife
DX: Z30.09 Encounter for other general counseling and advice on contraception (principal); Z12.4 Encounter for screening for malignant neoplasm of cervix; Z01.419 Encounter for gynecological examination (general) (routine) without abnormal findings
CPT/HCPCS: 99395

== ENCOUNTER → 2024-07-17 11:06 | Outpatient (BNVA) | payer OTHER, SELFPAY | PROVIDERS: PCP Internal Medicine; Visit Provider Advanced Practice Midwife ==

== ENCOUNTER 2025-04-16 16:05 | Outpatient (AMB) | payer OTHER, SELFPAY ==
[2025-04-16 16:06] VITALS: BP 102/74; PULSE 74; O2SAT 98; BMI 23.6
--- NOTE | 2025-04-16 16:06 | MHC.PC.OV ---
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 Accompanied by: Self / Same As Patient Allergies No Known Allergies Allergy (Verified 04/16/25 16:07) Medication List - Last Reconciled 04/16/25 by Erasto Cote MD cholecalciferol (vitamin D3) 25 mcg PO DAILY mecobalamin (vitamin B12) (B12 Active) 1,000 mcg PO DAILY omega 3-txu-dwk-fish oil 60-90-500 mg (Fish Oil) 1 cap PO DAILY omeprazole 20 mg PO DAILY pediatric multivitamin (Gummi Bear Multivitamin chewable tablet) 1 tab PO DAILY saffron extract mg PO Tobacco use date assessed: 04/16/25 Dental Screening Dental Screen Date: 04/16/25 Did you have a dental visit in the last 12 months?: Yes Did you have a dental problem in the last 6 months where you did not have access to dental care?: No Was dental information given to patient?: Patient has dentist HPI Annual PE HPI Details US breast - done 2022. occ dizzy , , occ chest tightness PFSH Medical History (Updated 04/16/25 @ 17:10 by Erasto Cote MD) Screen for sexually transmitted diseases control counseling Well woman exam with routine gynecological exam Anxiety Tourette syndrome Family History Maternal Uncle Bone cancer Lung cancer Other Diabetes FH: mental illness Hypertension Substance abuse Social History (Updated 04/16/25 @ 16:59 by Erasto Cote MD) Housing: House Alcohol intake: current Alcohol intake frequency: holidays/special occasions only Comment: once Q 3 month 1-2 drinks Patient Tobacco Use Status: Never used Tobacco e-Cigarette/Vaping Use: Never Used Second Hand Smoke Exposure: No service: No Current occupational status: employed Current occupational exposures/hazards: Yes Cognitive needs: No Hearing needs: No Vision needs: No Female Reproductive History Menstrual Age of Menarche: 11 Questionnaire PHQ-9 Over the last 2 weeks, how often have you been bothered by any of the following problems? 1. Little interest or pleasure in doing things: not at all 2. Feeling down, depressed, or hopeless: not at all 3. Trouble falling or staying asleep, or sleeping too much: not at all 4. Feeling tired or having little energy: not at all 5. Poor appetite or overeating: not at all 6. Feeling bad about yourself - or that you are a failure or have let yourself or your family down: not at all 7. Trouble concentrating on things, such as reading the newspaper or watching television: not at all 8. Moving or speaking so slowly that other people could have noticed. Or the opposite - being so fidgety or restless that you have been moving around a lot more than usual: not at all 9. Thoughts that you would be better off or of hurting yourself in some way: not at all Total score: 0 Source: Developed by Drs. Miguel Melara, Annika Ibanez, Sam Perez and colleagues, with an educational harrison from [employer]. Thrive Questionnaire Date Thrive assessed: 04/16/25 I am a: Patient What is your living situation today?: I have a steady place to live Within the past 12 months, did the food you bought not last and you didn't have the money to get more?: Never true Within the past 12 months, did you worry whether your food would run out before you got money to buy more?: Never true Do you have trouble paying for medicines?: No Do you have trouble getting transportation to medical appointments?: No Do you have trouble paying your heating and electricity bill?: No Do you have trouble taking care of your child, family member or friend?: No Do you have trouble with day-to-day activities such as bathing, preparing meals, shopping, managing finances, etc.?: No Are you currently unemployed and looking for a job?: Yes Are you interested in more education?: No Please select the resources that you would like help with: None Currently or been in a relationship where the following occur: No concerns reported THRIVE Score: 0 AUDIT C Alcohol Use Questionnaire (AUDIT-C) 1. How often do you have a drink containing alcohol?: Monthly or less 2. How many drinks containing alcohol do you have on a typical day when you are drinking?: 1 or 2 3. How often do you have six or more drinks on one occasion?: Never Total Score: 1 KEN-7 AMB Questionnaire KEN-7 Date KEN - 7 assessed: 04/16/25 Feeling nervous, anxious, or on edge: 0 = Not at all Not being able to stop or control worryin = Not at all Worrying too much about different things: 0 = Not at all Trouble relaxin = Not at all Being so restless that it is hard to sit still: 0 = Not at all Becoming easily annoyed or irritable: 0 = Not at all Feeling afraid as if something awful might happen: 0 = Not at all Total KEN-7 score (0-4 normal; 5-9 mild; 10-14 moderate; 15-21 severe): 0 Source: Developed by Drs. Miguel Melara, Annika Ibanez, Sam Perez and colleagues, with an educational harrison from [employer]. Review of Systems Const Denies poor appetite and Denies weakness Eyes Denies no additional complaints ENT Reports Normal hearing present, Denies dizziness, Denies nasal congestion, Denies tinnitus and Denies sore throat Card Denies chest pain, Denies syncope, Denies rapid heart rate and Denies dyspnea Resp Denies cough and Denies dyspnea GI Denies change in stool character, Reports constipation, Denies diarrhea, Denies nausea and Denies vomiting Denies urinary frequency, Denies difficulty voiding and Denies dysuria Neuro Reports Normal hearing present, Denies confusion, Denies dizziness, Denies syncope and Denies weakness Psych Denies confusion Physical exam (Primary Care) Vital Signs: Last Vital Signs Pulse 74 04/16/25 16:06 BP 102/74 04/16/25 16:06 Pulse Ox 98 04/16/25 16:06 Oxygen Delivery Method Room Air 04/16/25 16:06 BMI result Body Mass Index 23.6 Tobacco/Smoking Status: Tobacco use Status Tobacco use date assessed 04/16/25 04/16/25 16:08 Patient Tobacco Use Status Never used Tobacco 04/16/25 16:08 e-Cigarette/Vaping Use Never Used 04/16/25 16:08 PHQ-9: PHQ-9 Score PHQ-9: Total score 0 04/16/25 16:08 Thrive Assessment: Date of Thrive Assessment Date Thrive assessed 04/16/25 04/16/25 16:08 Currently or been in a relationship where the following occur: No concerns reported Const General: alert and awake; No confusion Orientation/consciousness: No confusion HENMT Other: Right TM intact, left impacted cerumen Head: Yes normocephalic Ears: external ears normal Face and sinus: Yes normal facial exam Mouth: moist mucous membranes Throat: Yes tonsils normal Eyes Conjunctivae: conjunctivae normal Pupils: Equal, round and reactive pupils present and Pupil accommodation reflex normal Direct Ophthalmoscopy: normal light reflex Neck Neck: No lymphadenopathy Thyroid: Thyroid normal Chest Chest palpation & inspection: normal inspection of the chest Resp Effort & Inspection: normal respiratory effort and no audible wheezes Auscultation: clear to auscultation bilaterally, no crackles, no wheezes and lung sounds not diminished Cardio Rate: regular rate Rhythm: regular rhythm Peripheral pulses: radial pulses present and dorsalis pedis present GI Palpation (GI): no masses Auscultation: normal bowel sounds and normoactive bowel sounds Rectal Exam - Female: deferred Skin General skin exam: no rashes or lesions noted Rashes: no rashes Neuro General: deep tendon reflexes 2+ bilaterally and No confusion Cranial nerves: Yes Equal, round and reactive pupils present, Yes Midline tongue present, Yes Normal hearing present and Yes Ability to bilaterally elevate shoulders present Cognition (Neuro): normal cognition Gait exam (Neuro): Normal gait present Motor exam (neuro): 5/5 motor strength present throughout Deep tendon reflexes (DTR's): Right brachioradialis reflex intensity grade: 2+, Left brachioradialis reflex intensity grade: 2+, Right patellar reflex intensity grade: 2+ and Left patellar reflex intensity grade: 2+ Extrem General: No edema Office Procedures Cerumen Removal From which ear canal was the cerumen removed: left Removal: otoscope w/curette and cerumen loop/spoon Notes: patient tolerated procedure well, no complications and ear canal clear [id number] Wax Removal by Spoon/Curette Coding Level of Care Code Est Pt Prev Care 18-39y(14453) Diagnoses Breast mass, right N63.10 KEN (generalized anxiety disorder) F41.1 Asthma J45.909 Annual physical exam Z00.00 GERD (gastroesophageal reflux disease) K21.9 Impacted cerumen of left ear H61.22 CPT Codes Office Procedure - CPT: 88537-Rjd Wax Removal by Spoon/Curette ([id number]) Assessment & Plan Assessment & Plan (1) Breast mass, right: Comment: 1 cm mass 6 oclock right breast; patient also started with new primary and thinks that she ordered mammogram and ultrasound as well patient to get screening with 1 of the above orders... Code(s): N63.10 - Unspecified lump in the right breast, unspecified quadrant Category: Medical Plan: Discussed with the patient updating on this breast mass problem. iJt has been told benign (2) KEN (generalized anxiety disorder): Code(s): F41.1 - Generalized anxiety disorder Category: Medical Plan: Stable (3) Asthma: Code(s): J45.909 - Unspecified asthma, uncomplicated Category: Medical Plan: Discussion about medications for asthma (4) Annual physical exam: Code(s): Z00.00 - Encounter for general adult medical examination without abnormal findings Category: Medical Plan: Patient is advised to eat healthy, keep well hydrated, keep active and have adequate sleep. (5) GERD (gastroesophageal reflux disease): Code(s): K21.9 - Gastro-esophageal reflux disease without esophagitis Category: Medical (6) Impacted cerumen of left ear: Code(s): H61.22 - Impacted cerumen, left ear Category: Medical Plan: scoop used and no irrigation TM intact Plan History of Present Illness The patient is a 30-year-old female presenting for a physical exam and follow-up on existing health concerns. The patient has a history of a breast mass, initially identified as fibrous tissue via ultrasound in 2022. The mass has remained stable without additional symptoms, though the patient frequently checks it due to concern. The patient reports a diagnosis of asthma, confirmed by pulmonary function tests showing mild obstructive ventilatory defect with air trapping. She experiences occasional chest tightness and nocturnal symptoms but has not used an inhaler previously. The patient also has gastroesophageal reflux disease (GERD), managed with omeprazole taken daily. She reports significant reflux symptoms despite dietary modifications and plans for further diagnostic workup were discussed. Health Maintenance - Pneumonia vaccination discussed for asthma management - Dietary modifications for GERD management - Regular exercise: Attends gym 3-4 times a week Social History - Employment: Recently started a new job involving increased physical activity - Exercise: Attends gym 3-4 times a week, engages in weight training - Substance use: Rare alcohol consumption, no tobacco or recreational drug use Review of Systems - General: Denies fever, weight loss, or fatigue - Respiratory: Reports occasional chest tightness, denies dyspnea - Gastrointestinal: Reports significant reflux symptoms, denies nausea or vomiting - Neurological: Reports occasional dizziness, denies headaches or syncope Physical Exam General: Cooperative, healthy appearing, comfortable, no acute distress and well developed Orientation: Patient oriented x3 Limitations: No limitations Head: Normal to inspection Ears: Hearing grossly normal bilaterally, some ear wax noted, about 20-30% open Nose: Normal external nose present Face and sinus: Normal facial exam Eyes: Appearance normal, both eyes and all related structures Neck: Normal visual inspection and Yes full ROM Respiratory: Mild obstructive ventilatory defect noted, no bronchodilator response, increased total lung capacity suggesting hyperinflation, increased residual volume suggesting air trapping. Patient reports occasional chest tightness and waking up at night feeling like breathing has stopped. Clear to auscultation bilaterally Cardiovascular: Regular rate and rhythm. Normal S1 and S2 GI: Normal to inspection. Soft to palpation and nontender Skin: No rashes or lesions noted Neuro: Patient oriented x3 Extremities: Normal to inspection Results - Pulmonary function test: Mild obstructive ventilatory defect, no bronchodilator response, increased total lung capacity, air trapping - Blood work (2022): Normal blood count, electrolytes, renal and liver function Plan For the breast mass, the patient will continue monitoring for any changes, with the option to consult a surgeon if concerns arise. Asthma management includes the introduction of an albuterol inhaler for symptomatic relief, with instructions on proper usage provided. For GERD, the patient will continue omeprazole and undergo further diagnostic evaluation to assess the severity of reflux symptoms. Preventative care includes discussing the pneumonia vaccination due to asthma and reinforcing dietary and lifestyle modifications to manage GERD. Patient was informed and verbally consented to the use of an ambient scribe for clinic note documentation during this visit. Discussion Notes I discussed with the patient the stable nature of her breast mass and the option for surgical consultation if needed. We reviewed the asthma diagnosis, emphasizing the use of an albuterol inhaler for symptomatic relief and the importance of monitoring symptoms. For GERD, we discussed continuing omeprazole and the need for further diagnostic evaluation. Preventative care measures, including the pneumonia vaccination, were also discussed, along with lifestyle modifications to manage GERD symptoms. Patient Instructions - Monitor breast mass for any changes and report if concerns arise. - Use albuterol inhaler as instructed for asthma symptoms. - Continue taking omeprazole daily for GERD management. - Follow dietary modifications to help manage GERD symptoms. - Consider pneumonia vaccination as discussed. Orders: Orders [place] upper GI series Today K21.9 - Gastro-esophageal reflux disease without esophagitis, R13.10 - Dysphagia, unspecified Medications: New albuterol sulfate 90 mcg/actuation (Proair Digihaler) 2 inhalations inhalation Q4-6H PRN 1 ea 0RF shortness of breath or wheezing J45.909 - Unspecified asthma, uncomplicated
--- OUTSIDE RECORDS SUMMARY | 2025-04-16 18:27 | XMS_ITS | Encounter Summary ---
Author Organization [facility] Address [address] [place] [id number] Phone Care Team Providers Care Diesel Inspector Name Role Phone Yin Meade DO Primary Care Provider [phone] Encounter Details Date Type Department Care Team (Late st Contact Info) Description 06/16/2017 Conversion Encounter [facility] [place] [address] [place] [address] Social History Tobacco Use Types Packs/Day Years Used Date Smoking Tobacco: Never Assessed Comments Unknown Sex and Gender Information Value Date Recorded Sex Assigned at Not on file Legal Sex Female 4:54 PM EDT Gender Identity Not on file Sexual Orientation Not on file documented as of this encounter Plan of Treatment Not on file documented as of this encounter Visit Diagnoses Not on filedocumented in this encounter Care Teams Diesel Inspector Relationship Specialty Start Date End Date Yin Meade DO [address] [place] [address] PCP - General 06/10/17 01/30/23 documented as of this encounter
== END 2025-04-16 17:14 | disposition home or self-care (01) ==
LOC: HO.HMCH 16:06
PROVIDERS: PCP Internal Medicine; Visit Provider Internal Medicine
DX: Z00.00 Encounter for general adult medical examination without abnormal findings (principal); N63.10 Unspecified lump in the right breast, unspecified quadrant; F41.1 Generalized anxiety disorder; J45.909 Unspecified asthma, uncomplicated; K21.9 Gastro-esophageal reflux disease without esophagitis; H61.22 Impacted cerumen, left ear

== ENCOUNTER → 2025-04-16 16:05 | Outpatient (BNVA) | payer OTHER, SELFPAY | PROVIDERS: PCP Internal Medicine; Visit Provider Internal Medicine | DX: Z00.00 Encounter for general adult medical examination without abnormal findings (principal); F41.1 Generalized anxiety disorder; J45.909 Unspecified asthma, uncomplicated; N63.10 Unspecified lump in the right breast, unspecified quadrant; K21.9 Gastro-esophageal reflux disease without esophagitis; H61.22 Impacted cerumen, left ear; R13.10 Dysphagia, unspecified | CPT/HCPCS: 69210; 96127 ==

== ENCOUNTER 2025-08-02 09:26 | Outpatient (REF) | payer BC, SELFPAY ==
--- NOTE | ~2025-08-02 | FL_ITS ---
EXAMINATION: XR FLUOROSCOPY UPPER GI WITH AIR CLINICAL INFORMATION: Dysphagia COMPARISON: None available. TECHNIQUE: Routine upper GI air contrast study was performed in upright and lying position. FINDINGS: Following oral administration of thick barium and effervescent granules and upright view there is normal propagation bolus from the oral cavity through the pharynx, esophagus into stomach without any evidence of obstruction, narrowing or stricture. The mucosal pattern esophagus is normal. On placing patient supine and prone lying there is normal course, caliber and peristalsis in the stomach, duodenal bulb and the sweep. The mucosal pattern is normal except for mild increased gastric secretions. No gastric erosions or ulcerations seen. There is mild to moderate gastroesophageal reflux without hiatal hernia. FLUOROSCOPY TIME: 1 minute 54 seconds DOSE AREA PRODUCT: 23.33 uGy-m2 (microgray-meter squared) FL/FL upper GI w air IMPRESSION: Mild to moderate gastroesophageal reflux without hiatal hernia. Electronically signed by: Anthony Weaver MD 08/02/2025 10:43 AM EDT
--- OUTSIDE RECORDS SUMMARY | 2025-08-02 10:10 | XMS_ITS | Encounter Summary ---
Author Organization [facility] Address [address] [place] [id number] Phone Care Team Providers Care Filer Metal Patterns Name Role Phone Yin Meade DO Primary Care Provider Encounter Details Date Type Department Care Team (Late st Contact Info) Description 06/16/2017 Conversion Encounter [facility] [place] [address] [place] [address] Social History Tobacco Use Types Packs/Day Years [...] on filedocumented in this encounter Care Teams Filer Metal Patterns Relationship Specialty Start Date End Date Yin Meade DO [address] [place] [address] PCP - General 06/10/17 01/30/23 documented as of this encounter
--- OUTSIDE RECORDS SUMMARY | 2025-08-02 10:10 | XMS_ITS | Clinical Summary ---
Author Organization [facility] Address [address] [place] [id number] Phone Care Team Providers Care Airport Sales Agent Name Role Phone Unavailable Primary Care Provider Unavailabl e Immunizations Immunization Administration Dates Next Due DTP 1994,1994,1994 DTaP 5 03/12/1999,05/27/1997 H1N1 11/24/2009 HPV, Quadrivalent 01/23/2010,11/24/2009 Hep B, ped/adol 1994,1994,1994 Hib (PRP-T) 05/27/1997, 4,1994, 994 Influenza, injectable, trivalent 11/24/2009,12/2007 MMR 03/12/1999,05/27/1997 Meningococcal Conj (Menactra) MCV4P 10/01/2008 OPV 03/12/1999, 4,1994, 994 Tdap 10/22/2005 Varicella 10/01/2008,04/13/1999 Family History Relation Name Status Comments Brother Alive Brother: Alive and well Father Alive Father: Diabete s, high cholesterol, strabismus Mother Alive Mother: Strabis mus/amblyopia Paternal Grandfather Alive Paterna l grandfather: Diabetes, Diabetes Paternal Grandmother Alive Paterna l grandmother: Deafness, Diabetes Sister Alive Sister: Alive a nd well Social History Tobacco Use Types Packs/Day Years Used Date Smoking Tobacco: Never Assessed Comments Unknown Sex and Gender Information Value Date Recorded Sex Assigned at Not on file Legal Sex Female 4:54 PM EDT Gender Identity Not on file Sexual Orientation Not on file Last Filed Vital Signs Vital Sign Reading Time Taken Comments Blood Pressure 116/81 09/24/2014 12:00 AM EST Pulse 93 09/24/2014 12:00 AM EST Temperature -13.6 C (7.6 F) 09/24/2014 12:00 AM EST Respiratory Rate - - Oxygen Saturation - - Inhaled Oxygen Concentration - - Weight 48.5 kg (107 lb) 09/24/2014 12:00 AM EST Height 158.8 cm (5' 2.5 ) 09/24/2014 12:00 AM ES T Body Mass Index 19.26 09/24/2014 12:00 AM EST Plan of Treatment Health Maintenance Due Date Last Done Comments HPV Vaccines (3 - 3-dose series) 05/24/2010 01/23/2010, 11/24/2009 DTaP,Tdap,and Td Vaccines (7 - Td or Tdap) 10/22/2015 10/22/2005, 03/12/1999, 05/27/1997, Additional history exists Influenza Vaccines (#1) 2025 11/24/2009, 10/01 COVID-19 Vaccine ( season) 2025 Hepatitis B Vaccines Completed 1994, 1994, 1994 HIB Vaccines Completed 05/27/1997, 09/01, 1994, Additional history exists IPV Vaccines Completed 03/12/1999, 09/01, 1994, Additional history exists MMR Vaccines Completed 03/12/1999, 05/27/1997 Meningococcal Vaccine Aged Out 10/01/2008 No bassam ramez eligible based on patient's age to complete this topic Varicella Vaccines Completed 10/01/2008, 04/13/1999 Hepatitis A Vaccines Aged Out No long er eligible based on patient's age to complete this topic Men B Vaccine Aged Out No longer elig ible based on patient's age to complete this topic Pneumococcal Vaccine Aged Out No long er eligible based on patient's age to complete this topic Procedures * Due to [place] state law, this organization might not be sharing sensitive test results. Procedure Name Priority Date/Time Associated Diagnosis Comments CHLAMYDIA AND GONORRHEA, AMPLIFIED Routine 09/14/2012 1:54 PM EST from Last 3 Months or Most Recently Relevant to Health Maintenance Results * Due to [place] state law, this organization might not be sharing sensitive test results. * Chlamydia and Gonorrhoea, Amplified (09/14/2012 1:54 PM EST) Pathologist [facility] URINE GC AMP PROBE NEGATIVE [facility] Comment: NO NEISSERIA GONORRHOEAE RNA DETECTED IN THIS PATIENT'S SAMPLE. (REFERENCE RANGE/NORMAL VALUE: NOT DETECTED) NOTE: THIS TEST USES FABRIC WORKER SUPERVISOR MEDIATED AMPLIFICATION METHOD TO DETECT rRNA FROM C.TRACHOMATIS AND N.GONORRHOEAE. A NEGATIVE RESULT DOES NOT PRECLUDE INFECTION WITH C.TRACHOMATIS OR N.GONORRHOEAE BECAUSE RESULTS ARE DEPENDENT ON ADEQUATE SPECIMEN COLLECTION, ABSENCE OF INHIBITORS, AND SUFFICIENT rRNA TO BE DETECTED. THE APTIMA COMBO2 ASSAY IS NOT INTENDED FOR THE EVALUATION OF SUSPECTED SEXUAL ABUSE OR FOR OTHER MEDICO LEGAL INDICATIONS. IS TRUE FOR ALL NON CULTURE METHODS, A POSITIVE SPECIMEN OBTAINED FROM A PATIENT AFTER THERAPEUTIC TREATMENT CANNOT BE INTERPRETED INDICATING THE PRESENCE OF VIABLE C.TRACHOMATIS OR N.GONORRHOEAE. THERAPEUTIC FAILURE OR SUCCESS CANNOT BE DETERMINED WITH THE APTIMA COMBO2 ASSAY SINCE NUCLEIC ACID MAY PERSIST FOLLOWING APPROPRIATE ANTIMICROBIAL THERAPY. A NEGATIVE URINE RESULT FOR A PATIENT WHO IS CLINICALLY SUSPECTED OF HAVING A CHLAMYDIAL OR GONOCOCCAL INFECTION DOES NOT RULE OUT THE PRESENCE OF C.TRACHOMATIS OR N.GONORRHOEAE IN THE UROGENITAL TRACT. TESTING OF AN ENDOCERVICAL(FEMALE) OR URETHRAL(MALE) SPECIMEN IS RECOMMENDED IF THERE IS HIGH CLINICAL SUSPICION OF INFECTION. PRESERVCYT LIQUID PAP AND URINE SAMPLING ARE NOT DESIGNED TO REPLACE CERVICAL EXAMS AND ENDOCERVICAL SAMPLES FOR DIAGNOSIS OF FEMALE UROGENITAL INFECTIONS. PATIENTS MAY HAVE CERVICITIS, URETHRITIS, URINARY TRACT INFECTIONS, OR VAGINAL INFECTIONS DUE TO OTHER CAUSES OR CONCURRENT INFECTIONS WITH OTHER AGENTS. URINE CHLAMYDIA AMP PROBE NEGATIVE [facility] Comment: NO CHLAMYDIA TRACHOMATIS RNA DETECTED IN THIS PATIENT'S SAMPLE. (REFERENCE RANGE/NORMAL VALUE: NOT DETECTED) 09/14/2012 1:54 PM EST Narrative [facility] - 09/14/2012 1:54 PM EST URINE CHLAMYDIA GC AMP PROBE Yin Meade DO LAB MICROBIOLOGY - GENERAL ORDER JESSICA Final Result [facility] [address] [place] [address], [place] from Last 3 Months or Most Recently Relevant to Health Maintenance
--- OUTSIDE RECORDS SUMMARY | 2025-08-02 10:10 | XMS_ITS | Encounter Summary ---
Author Organization [facility] Address [address] [place] [id number] Phone Care Team Providers Care Online User Experience Strategist Name Role Phone Yin Meade DO Primary Care Provider [phone] Encounter Details Date Type Department Care Team (Late st Contact Info) Description 01/26/2012 Documentation [facility] [place] [address] [place] [address] Family Medicine, Physician [address] [place] [address] Social History Tobacco Use Types Packs/Day Years [...] on filedocumented in this encounter Care Teams Online User Experience Strategist Relationship Specialty Start Date End Date Yin Meade DO [address] [facility] [place] [address] PCP - General 06/10/17 01/30/23 documented as of this encounter
== END 2025-08-02 09:27 | disposition home or self-care (01) ==
LOC: HO.XRAY 09:26
PROVIDERS: PCP Internal Medicine; Visit Provider Internal Medicine
DX: R13.10 Dysphagia, unspecified (principal); K21.9 Gastro-esophageal reflux disease without esophagitis
CPT/HCPCS: 74246

== ENCOUNTER → 2025-08-02 09:32 | Outpatient (BNV) | payer BC, SELFPAY | PROVIDERS: PCP Internal Medicine; Visit Provider Radiology Diagnostic Radiology | DX: K21.9 Gastro-esophageal reflux disease without esophagitis (principal) | CPT/HCPCS: 74246 ==